=== PATIENT | female | born 1985 | race Caucasian/White ===

== ENCOUNTER 2016-12-05 02:01 | Emergency (ER) | payer SELFPAY ==
--- NOTE | ~2016-12-05 | ENPV ---
Vascular Lower Extremities DVT Study Procedure Demographics Patient Name DEVAN MCKEON Date of Study 12/05/2016 Patient Number [id number] Gender Female Date of 1985 Age 31 Visit Number [id number] Height Accession Number [id number] Weight Room Number BSA BMI Referring Holly Bryant MD Interpreting Juan Alvarez MD Physician Physician Physician Ordering Physician Holly Bryant Tool Drawing Checker Paper Grader Vivien Chávez T Conclusions Summary Normal venous duplex examination of the legs bilaterally with normal venous Doppler signals noted throughout. No evidence of thrombophlebitis is noted bilaterally in the deep and superficial veins of the legs. Small calf thrombi cannot be excluded. Procedure Type of Study: Veins:Lower Extremities DVT Study, Lower Extremity Right. Indications for Study:Swelling. Appropriate Use Criteria:9 Patient Status:STAT. Study Location:ER. Technical Quality:Limited visualization due to body habitus. Velocities are measured in cm/s ; Diameters are measured in cm Right Lower Extremities DVT Study Measurements Right 2D and Doppler Measurements + + + + +------+------+ + !Location !Visualized!Compressibility!Thrombosis!Signal!Reflux!Reflux ! ! ! ! ! ! ! !(sec) ! + + + + +------+------+ + !GSV Thigh !Yes !Yes !None !Phasic!No ! ! + + + + +------+------+ + !Common !Yes !Yes !None !Phasic!No ! ! !Femoral ! ! ! ! ! ! ! + + + + +------+------+ + !Prox !Yes !Yes !None !Phasic!No ! ! !Femoral ! ! ! ! ! ! ! + + + + +------+------+ + !Mid Femoral!Yes !Yes !None !Phasic!No ! ! + + + + +------+------+ + !Dist !Yes !Yes !None !Phasic!No ! ! !Femoral ! ! ! ! ! ! ! + + + + +------+------+ + !Popliteal !Yes !Yes !None !Phasic!No ! ! + + + + +------+------+ + !Gastroc !Yes !Yes !None !Phasic!No ! ! + + + + +------+------+ + !PTV !Yes !Yes !None !Phasic!No ! ! + + + + +------+------+ + !Peroneal !Yes !Yes !None !Phasic!No ! ! + + + + +------+------+ + Left Lower Extremities DVT Study Measurements Left 2D and Doppler Measurements + + + + +------+------+ + !Location !Visualized!Compressibility!Thrombosis!Signal!Reflux!Reflux ! ! ! ! ! ! ! !(sec) ! + + + + +------+------+ + !Common !Yes !Yes !None ! ! ! ! !Femoral ! ! ! ! ! ! ! + + + + +------+------+ + Signature dtt: GIDEON HANSON: 12/05/16 0258 Physician Self Edit
--- NOTE | ~2016-12-05 | ER ---
PATIENT'S NAME: DEVAN MCKEON [facility] AGE: 31 Y [address] ROOM: [place] [address] LOCATION: [facility] ADMIT DATE: 12/05/2016 ER/Outpatient Report DISCHARGE DATE: FAMILY PHYSICIAN: PHYSICIAN, NO ATTENDING PHYSICIAN: Luke Barrera Admission date and time are documented on the medical record. I saw the patient at 0210 hours. CHIEF COMPLAINT: Right lower leg foot and ankle pain. HISTORY OF PRESENT ILLNESS: The patient is a 31-year-old female who has had a 3-week history of right lower leg ankle and foot pain. No known injury. She did not stumble, fall, twisted, stepped in a hole, or any other incident that she recalls that started this pain. No history of gout or degenerative arthritis. No other joint pain, muscle pain, or any other injury. HOME MEDICATIONS: None. ALLERGIES: NONE. SOCIAL HISTORY: Nonsmoker, nondrinker. SIGNIFICANT PAST MEDICAL HISTORY: Depression, remote tobacco abuse, elevated liver enzymes, and obesity. OPERATIONS: Cholecystectomy, tonsillectomy, adenoidectomy, left knee arthroscopy, and right ankle surgery. REVIEW OF SYSTEMS: All systems reviewed by me are negative with the exception of those discussed in the history of present illness. PHYSICAL EXAMINATION: VITAL SIGNS: Temperature 97.7, pulse 90, respirations 16, blood pressure 160/81, and O2 sat on room air is 99%. EXTREMITIES: On examination of the right leg, there is some tenderness in the calf, there is some mild swelling about 2-cm increased diameter right versus left. Pulse intact. No open wounds. There is no redness, some swelling of PATIENT'S NAME: DEVAN MCKEON [facility] AGE: 31 Y [address] ROOM: [place] [address] LOCATION: [facility] ADMIT DATE: 12/05/2016 ER/Outpatient Report DISCHARGE DATE: FAMILY PHYSICIAN: PHYSICIAN, NO ATTENDING PHYSICIAN: Luke Barrera the ankle, tenderness to palpation, but no deformity. NEUROVASCULAR: Appears to be intact. LABORATORY DATA: X-ray of the right ankle and right foot showed no fracture. We will review all plain films with the radiologist. Laboratory: White count was 11,900, 65 segs, 27 lymphs, 5 monos, 2 eos, hemoglobin is 12.7 with hematocrit 40.0, and platelet count is 230,000. Sed rate is elevated 35, PTT was 28, pro-time is 10.7 with an INR 1.0. CMS was normal except for slightly low potassium 3.6, elevated glucose 297, low calcium of 8.3, CRP was 3.68. Uric acid was normal at 4.0. Venous Doppler study of the right leg showed no evidence of deep vein thrombosis or superficial thrombosis. See dictated Radiology report. IMPRESSION: Right lower leg ankle and foot pain, etiology uncertain. This may be inflammatory change. There is no evidence of deep vein thrombosis on Doppler study. There was no evidence of infection on laboratory or physical exam evaluation. She did have some swelling, but again no redness, no inflammatory, it was not hot to the touch, neurovascular intact. PLAN: The patient was given Toradol 60 mg IM in the emergency room and Solu-Medrol 125 mg IM in the emergency room. Discharged home. Observation. Activity as tolerated. Put her in a right Cam walking boot. Ice, elevation intermittently as needed. Medrol Dosepak take as directed. Toradol 10 mg 1 every 6 hours x12 doses. Crutches use as needed. Follow up with personal physician in 7 to 10 days or sooner if needed. Discussion ensued with the patient concerning my findings and recommendations, she understands. MD ARTHUR MEREDITH/modl /[id number] d: 12/05/16 0345 t: 12/05/16 1813, OUTPATIENT REPORT
[2016-12-05 02:29] LABS: BASOPHIL # 0.1 K/uL (0.0-0.2); BASOPHIL % 0.4 %; EOSINOPHIL # 0.3 K/uL (0.0-0.5); EOSINOPHIL % 2.4 %; HEMOGLOBIN 12.7 g/dL (11.0-15.0); IMMATURE GRANULOCYTE % 0.3 %; LYMPHOCYTE # 3.2 K/uL (0.8-4.0); MCH 24.6 pg (27.0-34.0); MCHC 31.8 gm/dL (32.0-36.5); MCV 77.4 fl (83.0-98.0); MONOCYTE # 0.5 K/uL (0.0-1.0); MONOCYTE % 4.5 %; MPV 9.8 fl (9.4-12.4); NEUTROPHIL # (ANC) 7.8 K/uL (1.8-7.8); NEUTROPHIL % 65.4 %; NRBC % 0 /100WBC (0-0.00); PLATELET COUNT 230 K/uL (150-450); RBC 5.17 M/uL (3.50-5.50); RDW-CV 13.2 % (11.9-14.6); WBC 11.9 K/uL (4.0-11.0)
[2016-12-05 02:47] LABS: ALK PHOS 105 IU/L (33-138); ALT 32 IU/L (12-78); ANION GAP 14.6 (10.0-19.0); AST 22 IU/L (10-40); BLOOD UREA NITROGEN 9 mg/dL (6-24); CALCIUM 8.3 mg/dL (8.5-10.5); CHLORIDE 104 mMol/L (96-110); CO2 26 mMol/L (22-32); CREATININE 0.7 mg/dL (0.5-1.1); ESTIMATED GFR (MDRD EQUATION) > 60; POTASSIUM 3.6 mMol/L (3.7-5.1); SODIUM 141 mMol/L (135-145); TOTAL BILIRUBIN 0.4 mg/dL (0.0-1.5); TOTAL PROTEIN 6.9 g/dL (6.0-8.4)
[2016-12-05 02:48] LABS: PROTIME 10.7 SECONDS (9.6-11.1); PTT 28 SECONDS (25-32)
== END 2016-12-05 03:27 | disposition disaster alternative care site (69) ==
LOC: GMED 02:01
PROVIDERS: Emergency Medicine
DX: M25.571 Pain in right ankle and joints of right foot (principal); Z90.49 Acquired absence of other specified parts of digestive tract; Z90.89 Acquired absence of other organs; Z98.890 Other specified postprocedural states
CPT/HCPCS: J1885; J2930

== ENCOUNTER 2016-12-30 21:41 | Emergency (ER) | payer SELFPAY ==
--- NOTE | ~2016-12-30 | ER ---
PATIENT'S NAME: DEVAN MCKEON [facility] AGE: 31 Y [address] ROOM: [place] [address] LOCATION: [facility] ADMIT DATE: 12/30/2016 ER/Outpatient Report DISCHARGE DATE: 12/30/2016 FAMILY PHYSICIAN: PHYSICIAN, NO ATTENDING PHYSICIAN: Emmanuel Escamilla TIME OF ARRIVAL: 2145 hours. TIME OF EXAM: 2145 hours. CHIEF COMPLAINT: Cough, bloody nose. HISTORY OF PRESENT ILLNESS: The patient states yesterday she developed nasal congestion and cough. She has had fever, chills type symptoms off and on for the past 24 hours. Concern that she has repeated bloody noses, they are self-limiting, and she is able to get them to stop. She is just concerned because they are continuing. ALLERGIES: SHE HAS NO KNOWN ALLERGIES. MEDICATIONS: No current medications. PAST MEDICAL HISTORY: Positive for hepatitis B. PAST SURGERIES: Tonsillectomy, left knee surgery, and right ankle surgery. SOCIAL HISTORY: She denies use of tobacco, drugs, or alcohol. REVIEW OF SYSTEMS: All negative other than those mentioned in the HPI. PHYSICAL EXAMINATION: VITAL SIGNS: She weighed 169.8 kg. Blood pressure is 189/88, pulse of 100, respirations 20, temp of 98.8, and O2 sat was 97% on room air. GENERAL: She is awake, alert, and oriented x4. SKIN: [place], warm, and dry. RESPIRATIONS: Even and nonlabored. Nasal is boggy. No active bleeding is PATIENT'S NAME: DEVAN MCKEON [facility] AGE: 31 Y [address] ROOM: [place] [address] LOCATION: [facility] ADMIT DATE: 12/30/2016 ER/Outpatient Report DISCHARGE DATE: 12/30/2016 FAMILY PHYSICIAN: PHYSICIAN, NO ATTENDING PHYSICIAN: Emmanuel Escamilla noted at this time. No dried blood in the nares are noted. Oropharynx is clear. No postnasal drip is noted. NECK: Supple. No lymphadenopathy. LUNGS: Lung sounds are clear throughout. HEART: Regular rate and rhythm. LABORATORY DATA: Chest x-ray was completed. No acute process noted. Influenza A and B were checked and they are negative. IMPRESSION: Viral respiratory illness, epistaxis. PLAN: Home, rest, fluids, and Tylenol or ibuprofen as needed. Did discuss with the patient ways to help moisturize the nose area with either saline nose spray or cool mist humidifier. If symptoms persist or worsen, I encouraged her to follow up with her primary provider within the next 2-3 days. She verbalized understanding. BRIONNA ARELLANO APRN FOR MD RICA LANDRY/henrry /[id number] d: 12/31/167 t: 01/11/17 0826, OUTPATIENT REPORT
== END 2016-12-30 22:30 | disposition disaster alternative care site (69) ==
LOC: GMED 21:41
DX: J98.8 Other specified respiratory disorders (principal); R04.0 Epistaxis; Z90.89 Acquired absence of other organs; Z98.890 Other specified postprocedural states

== ENCOUNTER 2017-01-30 16:25 | Emergency (ER) | payer SELFPAY ==
--- NOTE | ~2017-01-30 | ER ---
PATIENT'S NAME: ENE MCKEON [facility] AGE: 31 Y [address] ROOM: [place] [address] LOCATION: [facility] ADMIT DATE: 01/30/2017 ER/Outpatient Report DISCHARGE DATE: 01/30/2017 FAMILY PHYSICIAN: PHYSICIAN, NO ATTENDING PHYSICIAN: Luke Barrera Admit Time: 1625 hours. Time of Evaluation: 1635 hours. CHIEF COMPLAINT: Migraine headache, lower back pain. HISTORY OF PRESENT ILLNESS: Ene is a 31-year-old, female who presents with her to the emergency room with a 2-day history of increasing headache, also some lower back pain that has been consistent off and on. The patient did take some Tylenol yesterday, ibuprofen a couple of days ago, but she currently does not have any financial means to afford more. She reports a little bit of sensitivity with light, but no nausea or vomiting. She does have a history of migraines, she tells me "this feels like a regular migraine, as it is always in the right frontal part of my head." She reports her last migraine headache was 2 months ago. She currently rates her pain at 9/10. The patient's blood pressure is a little bit elevated, but denies any history of hypertension. The patient is also complaining of some lower back pain, reports it is off and on, but has been more so in the last couple of days. She denies any lower leg pain, weakness, radiculopathy, loss of bowel or bladder function, extreme weakness, and/or fever. The patient has no personal history of cancer. PAST MEDICAL HISTORY: 1. Anxiety. 2. Depression. 3. Hepatitis C, has had treatment and eradicated. 4. Migraine headache. ALLERGIES: NO KNOWN DIAGNOSED ALLERGIES. MEDICATIONS: No medications on a regular basis. SOCIAL HISTORY: The patient denies any smoking, has had a history in the past where she would smoke a few. She denies any regular alcohol use or drug use. FAMILY HISTORY: PATIENT'S NAME: EEN MCKEON [facility] AGE: 31 Y [address] ROOM: [place] [address] LOCATION: [facility] ADMIT DATE: 01/30/2017 ER/Outpatient Report DISCHARGE DATE: 01/30/2017 FAMILY PHYSICIAN: PHYSICIAN, NO ATTENDING PHYSICIAN: Luke Barrera Not obtained. REVIEW OF SYSTEMS: All systems are reviewed by myself and negative with the exception of those noted in the HPI. She has no history of heart problems, no urinary symptoms today. PHYSICAL EXAMINATION: VITAL SIGNS: 5 feet 11 inches. Weight 172 kg. Temperature 99.1, pulse 95, respirations 16, blood pressure 160/73, and she is 97% on room air. Current pain level 9/10. GENERAL: Ene is alert and oriented x4, cooperative, in no acute distress. The lights are on, this does not seem to bother her much. SKIN: Overall is within normal limits. HEENT: Head: Normocephalic, atraumatic. Eyes: Sclerae are nonicteric. Pupils equal, round, and reactive to light. Ears: TMs intact. There are no effusions or redness noted. Nose: Patent. No congestion noted. Mouth and Throat: Oropharynx clear. Buccal mucosa is moist. Tongue is midline. Uvula is midline. NECK: Supple. No lymphadenopathy. No nuchal rigidity noted. She has full range of motion noted. CHEST AND LUNGS: Lung sounds are clear throughout. HEART: Regular rate and rhythm. No murmur appreciated. MUSCULOSKELETAL: She is tender to her lower back, to bilateral paraspinous lumbar area. There is no vertebral tenderness. The patient has deep tendon reflexes 2+ patellar, no radiculopathy. Strength 5/5 to lower extremities. NEUROLOGIC: Cranial nerves are grossly intact. LABORATORY DATA: Please note, there were no labs or x-rays performed with this visit. ASSESSMENT: 1. Migraine headache with no neurologic deficits. 2. Low back strain with no neurologic deficits. PLAN: The patient did receive Toradol 60 mg IM x1, did tolerate this well. She has had this in the past and reports this has been helpful. The patient will not have any means to pay for the ibuprofen, I did call the pharmacy to make sure there was no free samples that could be given. I did write her a script for ibuprofen 600 mg 1 p.o. t.i.d. p.r.n. headache/back pain, #30 with no refills. She does get paid next week and she will go ahead and do this. She also has an appointment at the [facility] next week on February 08. She can use heat with warm moist packs at home and also she believes she has some Icy Hot and/or BioFreeze. No lifting, pushing, pulling greater than 10 pounds. No PATIENT'S NAME: ENE MCKEON [facility] AGE: 31 Y [address] ROOM: [place] [address] LOCATION: [facility] ADMIT DATE: 01/30/2017 ER/Outpatient Report DISCHARGE DATE: 01/30/2017 FAMILY PHYSICIAN: PHYSICIAN, NO ATTENDING PHYSICIAN: Luke Barrera excessive standing in one spot, and she is to return if she would have any red flag symptoms and which we reviewed extensively. The patient's is here, is here to take her home. They will return to the emergency room if there would be any change in her symptomatology. The patient is agreeable. CONDITION: Stable. JOHN QUEZADA, GUITAR MAKER HAND FOR MD VIVIANA MEREDITH/henrry /[id number] d: 01/30/172304 t: 02/10/17 1322, OUTPATIENT REPORT
== END 2017-01-30 18:00 | disposition disaster alternative care site (69) ==
LOC: GMED 16:25
DX: S39.012A Strain of muscle, fascia and tendon of lower back, initial encounter (principal); G43.909 Migraine, unspecified, not intractable, without status migrainosus; F41.9 Anxiety disorder, unspecified; F32.9 Major depressive disorder, single episode, unspecified; X58.XXXA Exposure to other specified factors, initial encounter
CPT/HCPCS: J1885

== ENCOUNTER 2017-02-12 15:46 | Emergency (ER) | payer SELFPAY ==
--- NOTE | ~2017-02-12 | ER ---
PATIENT'S NAME: DEVAN MCKEON [facility] AGE: 31 Y [address] ROOM: [place] [address] LOCATION: [facility] ADMIT DATE: 02/12/2017 ER/Outpatient Report DISCHARGE DATE: 02/12/2017 FAMILY PHYSICIAN: PHYSICIAN, NO ATTENDING PHYSICIAN: Luke Barrera Admission date and time are documented on the medical record. I saw the patient at 1605 hours. CHIEF COMPLAINT: Left nasal bleed. HISTORY OF PRESENT ILLNESS: This patient is a 31-year-old female who has had left nasal bleed off and on since 0800 this morning. No trauma. She has not had any respiratory or nasal congestion. Did not blow her nose or pick her nose. Presented to the emergency room for evaluation. No other complaints. HOME MEDICATIONS: None. ALLERGIES: NONE. SOCIAL HISTORY: Nonsmoker, nondrinker. SIGNIFICANT PAST MEDICAL HISTORY: Negative. OPERATIONS: Cholecystectomy, tonsillectomy, left knee surgery, and right ankle surgery. REVIEW OF SYSTEMS: All systems reviewed by me are negative with the exception of those discussed in the history of present illness. PHYSICAL EXAMINATION: VITAL SIGNS: Temperature 98.9, tympanic, pulse 105, respirations 20, blood pressure 161/103, came down to 170/93, and O2 sat on room air is 97%. HEENT: On examination, the patient has no active bleeding anteriorly or posteriorly from the left naris. There is some areas after suctioning that looks like it was raw, blood vessel has clotted off; so, I went ahead and cauterized these areas with silver nitrate. The patient tolerated the procedure well. PATIENT'S NAME: DEVAN MCKEON [facility] AGE: 31 Y [address] ROOM: [place] [address] LOCATION: [facility] ADMIT DATE: 02/12/2017 ER/Outpatient Report DISCHARGE DATE: 02/12/2017 FAMILY PHYSICIAN: PHYSICIAN, NO ATTENDING PHYSICIAN: Luke Barrera IMPRESSION: Left nasal bleed. PLAN: The patient dismissed home. Observation. Activity as tolerated. Avoid blowing or picking nose. May use Vaseline in the nares if needed to keep the nasal mucosa moist. May start this after 24 hours. Follow up with personal physician as needed. MD ARTHUR MEREDITH/henrry /[id number] d: 02/12/17 2337 t: 02/13/17 0651, OUTPATIENT REPORT
== END 2017-02-12 16:42 | disposition disaster alternative care site (69) ==
LOC: GMED 15:46
PROC: 0W3Q7ZZ Control Bleeding in Respiratory Tract, Via Natural or Artificial Opening (ICD-10-PCS; principal; 2017-02-12)
DX: R04.0 Epistaxis (principal); Z90.49 Acquired absence of other specified parts of digestive tract; Z98.890 Other specified postprocedural states

== ENCOUNTER 2017-02-15 10:34 | Emergency (ER) | payer SELFPAY ==
--- NOTE | ~2017-02-15 | ER ---
PATIENT'S NAME: DEVAN MCKEON [facility] AGE: 31 Y [address] ROOM: [place] [address] LOCATION: [facility] ADMIT DATE: 02/15/2017 ER/Outpatient Report DISCHARGE DATE: 02/15/2017 FAMILY PHYSICIAN: PHYSICIAN, NO ATTENDING PHYSICIAN: Emmanuel Benavidez HISTORY OF PRESENT ILLNESS: The patient states that since she was here on Monday for her nosebleed, she has had some intermittent rebleeding and today, she felt like it was very prolific. She has been using her finger to try to apply some Vaseline to the nose. She has not tried any pressure to stop the bleeding today. It started today after a sneeze. No other acute findings or issues and she denies anticoagulation. PAST MEDICAL HISTORY: Documented on the record and reviewed by me. SOCIAL HISTORY: Documented on the record and reviewed by me. MEDICATIONS: Documented on the record and reviewed by me. ALLERGIES: DOCUMENTED ON THE RECORD AND REVIEWED BY ME. ROS: All systems are reviewed and negative except as noted in the HPI. PHYSICAL EXAMINATION: VITAL SIGNS: Blood pressure is 143/102, pulse is 95, respiratory rate is 14, temperature 98.1, SpO2 is 97% on room air, pain is 0/10. GENERAL: Age appropriate female, sitting upright on a chair, in no obvious pain or distress. NEUROLOGIC: Awake, alert. GCS is 15. No obvious abnormalities. HEENT: Normocephalic, atraumatic. Eyes are PERRL. Oropharynx is clear. NECK: Supple. Trachea is midline. Nasopharynx is notable for some excoriation on the left Kiesselbach's plexus. No active bleeding appreciated. Scant dried blood at the nares. CHEST: Even, unlabored respirations. HEART: Regular rate and rhythm. ABDOMEN: Obese. EXTREMITIES: Warm and well perfused. SKIN: Clean, dry, and intact. PATIENT'S NAME: DEVAN MCKEON [facility] AGE: 31 Y [address] ROOM: [place] [address] LOCATION: [facility] ADMIT DATE: 02/15/2017 ER/Outpatient Report DISCHARGE DATE: 02/15/2017 FAMILY PHYSICIAN: PHYSICIAN, NO ATTENDING PHYSICIAN: Emmanuel Benavidez LABORATORY DATA AND X-RAYS: None. IMPRESSION: Epistaxis, resolved. EMERGENCY DEPARTMENT COURSE: The patient was seen and evaluated. I reiterated at length the utility for pressure in the setting of active bleeding. I also recommended using a cotton- tipped applicator to ensure adequate application of petroleum jelly to the nasal septum in addition to humidified air, as well as use of oxymetazoline and pressure if she has continued bleeding after 10-15 minutes of direct pressure. The patient was thankful for the updates. She had no further bleeding, was deemed stable for discharge, and subsequently was discharged to home. Follow up as needed. EMMANUEL MD AMAN BENAVIDEZ/henrry /[id number] d: 02/16/17 0013 t: 02/28/17 1732, OUTPATIENT REPORT
== END 2017-02-15 11:00 | disposition disaster alternative care site (69) ==
LOC: GMED 10:34
DX: R04.0 Epistaxis (principal)

== ENCOUNTER 2017-03-23 20:42 | Emergency (ER) | payer SELFPAY ==
--- NOTE | ~2017-03-23 | ER ---
PATIENT'S NAME: ENE MCKEON [facility] AGE: 31 Y [address] ROOM: [place] [address] LOCATION: [facility] ADMIT DATE: 03/23/2017 ER/Outpatient Report DISCHARGE DATE: 03/23/2017 FAMILY PHYSICIAN: Physician, Unknown ATTENDING PHYSICIAN: Zoe Herrera Time of Arrival: 2042 hours. Time of Evaluation: 2112 hours. CHIEF COMPLAINT: Low back pain. HISTORY OF PRESENT ILLNESS: Ene is a 31-year-old female, who presents to the emergency room with an onset of lower back pain over the last 3 weeks. I had seen Ene myself here in the emergency room about 3 to 4 weeks ago, I did review this note. [facility], they suggest to use over-the- counter ibuprofen and Tylenol for her back pain. She denies any previous injuries, no previous MVAs or trauma. She currently is not working as she is on disability. She denies any new injuries, any new activity. She reports the evenings and the nights are hard to get comfortable, she does not have any insurance or any financial means to afford any further medications at this time over the counter. I had previously wrote a script for ibuprofen, but she did not fill this, reports she was able to use a couple from a friend. The patient is complaining now some radiculopathy, which is new from her prior visit. She has no prior history of an x-ray of her back. The patient denies any abdominal pain, fevers, or personal history of cancer. She denies any loss of bowel or bladder function. PAST MEDICAL HISTORY: 1. Anxiety with depression. 2. History of migraine headaches. 3. Hepatitis C, treated and eradicated. 4. Postoperative tonsillectomy. 5. Postoperative cholecystectomy. 6. Postoperative left knee surgery. 7. Postoperative right ankle surgery. CURRENT MEDICATIONS: The patient is not taking any medications on a regular basis. ALLERGIES: NO KNOWN DIAGNOSED ALLERGIES. PATIENT'S NAME: ENE MCKEON [facility] AGE: 31 Y [address] ROOM: [place] [address] LOCATION: [facility] ADMIT DATE: 03/23/2017 ER/Outpatient Report DISCHARGE DATE: 03/23/2017 FAMILY PHYSICIAN: Physician, Unknown ATTENDING PHYSICIAN: Zoe Herrera SOCIAL HISTORY: The patient is , her is with her tonight. She denies any smoking, drugs, or alcohol use. REVIEW OF SYSTEMS: All systems reviewed by myself and negative with the exception of those noted in the HPI. PHYSICAL EXAMINATION: VITAL SIGNS: Current height 5 feet and 11 inches, current weight 172.6 kg, temperature 99.0, pulse 110, respirations 16, blood pressure is elevated at 177/95, and she is 96% on room air. GENERAL: The patient is alert, oriented x4, cooperative, in no acute distress. She is lying on her left side as she says it hurts too much to lay on her right. SKIN: Overall is within normal limits. There are no rashes or bruising to her lower back. LUNGS: Lung sounds are clear throughout. HEART: Regular rhythm, slightly tachycardic. She was little anxious, this did come down after being here for a little while. BACK: She does have some vertebral tenderness to her lumbar area, mostly lower. Some tenderness to the SI joint mostly on the right side. Mild discomfort all the way across her lower back. She does have some sciatic notch tenderness. EXTREMITIES: She reports of radiculopathy that travels to the posterior part of her leg, down to her toes. Reflexes intact, strong. Plantar and dorsiflexion are strong. There is no disruption in circulation noted. Gait is slightly ataxic, but otherwise normal. No other focal deficits are noted. LABORATORY DATA AND X-RAYS: Please note, an x-ray of the lumbar spine was obtained. There may be just a little bit of narrowing between L1 and L2, but there is no other abnormalities present, vertebral height is adequate, space is adequate. No acute findings noted. Await official over-read. ASSESSMENT: 1. Lower back pain. 2. Right-sided sciatica. 3. Radiculopathy. PLAN: The patient did receive Toradol 60 mg IM x1 and cyclobenzaprine 10 mg p.o. x1. The patient does not have the financial means to fill any ibuprofen and/or cyclobenzaprine. I did print her out a handout on some exercises for sciatica, also a back care handout. She does have some leftover ibuprofen at PATIENT'S NAME: ENE MCKEON [facility] AGE: 31 Y [address] ROOM: [place] [address] LOCATION: [facility] ADMIT DATE: 03/23/2017 ER/Outpatient Report DISCHARGE DATE: 03/23/2017 FAMILY PHYSICIAN: Physician, Unknown ATTENDING PHYSICIAN: Zoe Herrera home from her friend that she may use and also Tylenol if she is able to borrow from a friend. We talked about heat and ice, and also topical analgesics. [facility], her does have an appointment. The patient verbalizes understanding, condition is stable. JOHN QUEZADA APRN FOR MD VIVIANA LINO/henrry /[id number] d: 03/24/17 0336 t: 04/02/17 191, OUTPATIENT REPORT
== END 2017-03-23 22:05 | disposition disaster alternative care site (69) ==
LOC: GMED 20:42
DX: M54.16 Radiculopathy, lumbar region (principal); M54.41 Lumbago with sciatica, right side; F41.8 Other specified anxiety disorders; G43.909 Migraine, unspecified, not intractable, without status migrainosus; Z86.19 Personal history of other infectious and parasitic diseases; Z90.89 Acquired absence of other organs; Z90.49 Acquired absence of other specified parts of digestive tract; Z98.890 Other specified postprocedural states
CPT/HCPCS: J1885

== ENCOUNTER 2017-03-29 10:00 | Emergency (ER) | payer SELFPAY ==
--- NOTE | ~2017-03-29 | ER ---
PATIENT'S NAME: DEVAN MCKEON [facility] AGE: 31 Y [address] ROOM: [place] [address] LOCATION: [facility] ADMIT DATE: 03/29/2017 ER/Outpatient Report DISCHARGE DATE: 03/29/2017 FAMILY PHYSICIAN: Physician, Unknown ATTENDING PHYSICIAN: Ana Luisa Dubois TIME OF ARRIVAL: 1000 hours. TIME SEEN: 1047 hours. IDENTIFICATION: A 31-year-old female. CHIEF COMPLAINT: Elevated blood pressure and pulse. HISTORY OF PRESENT ILLNESS: The patient is a 31-year-old female, who normally receives care at the [facility]. She went to the [facility] yesterday and today because she wishes to donate. She was found to have a slightly elevated blood pressure and pulse and she has been feeling tired, so she came here although she said her labs there were normal. Her only other symptom is she has increased thirst. ALLERGIES: NO KNOWN DRUG ALLERGIES. CURRENT MEDICATIONS: No current medications. MEDICAL PROBLEMS: Denies. PRIOR SURGERIES: Cholecystectomy, left knee surgery, right ankle surgery, and tonsillectomy. SOCIAL HISTORY: The patient is disabled due to a reading disability. Lives here in [place]. Does not work. Tobacco use, denies. Alcohol use, denies. Drug use, denies. REVIEW OF SYSTEMS: All systems reviewed and negative other than what is noted in the HPI. Last menstrual period ended on March 24 and was normal, and then just increase in PATIENT'S NAME: DEVAN MCKEON [facility] AGE: 31 Y [address] ROOM: [place] [address] LOCATION: [facility] ADMIT DATE: 03/29/2017 ER/Outpatient Report DISCHARGE DATE: 03/29/2017 FAMILY PHYSICIAN: Physician, Unknown ATTENDING PHYSICIAN: Ana Luisa Dubois thirst. She denies headache. No neck pain. No vision changes. No sore throat. No cough or shortness of breath. No abdominal pain, nausea, or vomiting. No diarrhea. No blood in her stools. No dark, tarry, or black stools. No pain or burning with urination. No increased frequency of urination. No lower extremity edema. She says she has been eating and drinking very well. PHYSICAL EXAMINATION: VITAL SIGNS: Weight 170 kg, blood pressure 163/98, pulse 92-98, respirations 20, temperature 97.4, and saturations 97% on room air. Recheck blood pressure 136/90, pulse 92, respirations 20, and saturations 97%. GENERAL: A 31-year-old female, in no acute distress. HEENT: Head: Normocephalic, atraumatic. Ears: TMs translucent both ears. Eyes: Pupils equal and reactive to light and accommodation. Extraocular movements intact. Nose: Mucosa pink. No lesions or drainage. Mouth: No lesions. Pharynx benign. NECK: Supple. No lymphadenopathy. No thyromegaly. LUNGS: Clear to auscultation. Breath sounds are equal. HEART: Regular rate and rhythm. No murmur, rub, or gallop. ABDOMEN: Bowel sounds present. Soft, protuberant, nondistended, and nontender. SKIN: [place], warm, and dry. No lesions or rashes noted. NEUROLOGIC: The patient is alert and oriented x4. Cranial nerves 2 through 12 grossly intact. Motor strength 5/5 throughout. Sensation is intact to light touch. No lower extremity edema. LABORATORY DATA: UA; specific gravity 1.020, pH 6, glucose 250 mg/dL otherwise negative. Urine hCG is negative. Sodium 137, potassium 3.8, chloride 105, CO2 of 24, BUN 10, creatinine 0.8, and blood sugar 271. Liver enzymes normal. Alkaline phosphatase 132, AST 43, ALT 44. TSH 2.050. Hemoglobin 13.9, hematocrit 42.7, platelets 290, and white count 13.1 with a normal differential. Hemoglobin A1c elevated at 9.6. IMPRESSION: 1. New-onset diabetes. 2. Elevated blood pressure. 3. Fatigue. PLAN: I strongly [facility]. Diabetic diet information was provided. I did discuss starting metformin with her. She would like to wait until followup at the [facility]. The patient understands and agrees, and all questions have been answered. PATIENT'S NAME: DEVAN MCKEON [facility] AGE: 31 Y [address] ROOM: [place], [place] [address] LOCATION: ED ADMIT DATE: 03/29/2017 ER/Outpatient Report DISCHARGE DATE: 03/29/2017 FAMILY PHYSICIAN: Physician, Unknown ATTENDING PHYSICIAN: Ana Liusa Dubois MD GERONIMO LANDERS/henrry /[id number] d: 03/29/178 t: 04/01/17 0819, OUTPATIENT REPORT
[2017-03-29 11:17] LABS: BASOPHIL # 0.1 K/uL (0.0-0.2); BASOPHIL % 0.5 %; EOSINOPHIL # 0.2 K/uL (0.0-0.5); EOSINOPHIL % 1.6 %; HEMATOCRIT 42.7 % (33.0-46.0); HEMOGLOBIN 13.9 g/dL (11.0-15.0); IMMATURE GRANULOCYTE # 0.1 K/uL (0.0-0.3); IMMATURE GRANULOCYTE % 1.1 %; LYMPHOCYTE # 2.9 K/uL (0.8-4.0); LYMPHOCYTE % 21.7 %; MCHC 32.6 gm/dL (32.0-36.5); MCV 76.9 fl (83.0-98.0); MONOCYTE # 0.7 K/uL (0.0-1.0); MONOCYTE % 5.1 %; MPV 9.9 fl (9.4-12.4); NEUTROPHIL # (ANC) 9.2 K/uL (1.8-7.8); NRBC % 0 /100WBC (0-0.00); RBC 5.55 M/uL (3.50-5.50); RDW-CV 13.1 % (11.9-14.6); WBC 13.1 K/uL (4.0-11.0)
[2017-03-29 11:20] LABS: PLATELET COUNT 290 K/uL (150-450)
[2017-03-29 11:33] LABS: BILIRUBIN URINE NEGATIVE (NEGATIVE); BLOOD URINE NEGATIVE /UL (NEGATIVE); COLOR URINE YELLOW (YELLOW); GLUCOSE URINE 250 mg/dL (NEGATIVE); KETONE URINE NEGATIVE (NEGATIVE); LEUKOCYTES URINE NEGATIVE /UL (NEGATIVE); NITRITE URINE NEGATIVE (NEGATIVE); PROTEIN URINE NEGATIVE (NEGATIVE); TURBIDITY URINE CLEAR (CLEAR); UROBILINOGEN URINE NORMAL (NORMAL)
[2017-03-29 11:36] LABS: ALBUMIN 3.2 gm/dL (3.5-5.0); ALK PHOS 132 IU/L (33-138); ALT 44 IU/L (12-78); ANION GAP 11.8 (10.0-19.0); AST 43 IU/L (10-40); BLOOD UREA NITROGEN 10 mg/dL (6-24); CALCIUM 8.4 mg/dL (8.5-10.5); CHLORIDE 105 mMol/L (96-110); CO2 24 mMol/L (22-32); CREATININE 0.8 mg/dL (0.5-1.1); ESTIMATED GFR (MDRD EQUATION) > 60; POTASSIUM 3.8 mMol/L (3.7-5.1); SODIUM 137 mMol/L (135-145); TOTAL PROTEIN 7.8 g/dL (6.0-8.4)
[2017-03-29 11:42] LABS: TOTAL BILIRUBIN 0.7 mg/dL (0.0-1.5)
== END 2017-03-29 12:55 | disposition disaster alternative care site (69) ==
LOC: GMED 10:00
PROVIDERS: Family Medicine
DX: R03.0 Elevated blood-pressure reading, without diagnosis of hypertension (principal); E11.9 Type 2 diabetes mellitus without complications; R53.83 Other fatigue; Z90.49 Acquired absence of other specified parts of digestive tract; Z90.89 Acquired absence of other organs

== ENCOUNTER 2017-05-22 19:03 | Emergency (ER) | payer SELFPAY ==
--- NOTE | ~2017-05-22 | ER ---
PATIENT'S NAME: DEVAN MCEKON [facility] AGE: 32 Y [address] ROOM: [place] [address] LOCATION: [facility] ADMIT DATE: 05/22/2017 ER/Outpatient Report DISCHARGE DATE: 05/22/2017 FAMILY PHYSICIAN: PHYSICIAN, NO ATTENDING PHYSICIAN: Phu Meyer Time of Arrival: 1903 hours. Time of Evaluation: 1920 hours. CHIEF COMPLAINT: This is a 32-year-old female. She was previously healthy. She is in with complaint of pain in her left foot in the heel. HISTORY OF PRESENT ILLNESS: She reports that she started a new job. She has been on her feet more than usual. She denies any injury, but she developed pain in her heel earlier today. PAST MEDICAL HISTORY: Significant for obesity. CURRENT MEDICATIONS: None. REVIEW OF SYSTEMS: Otherwise negative. SOCIAL HISTORY: She is a nonsmoker. PHYSICAL EXAMINATION: GENERAL: An alert overweight female, in no acute distress. VITAL SIGNS: Stable. SKIN: Warm and dry. Color was normal. EXTREMITIES: Examination of the affected extremity: The left foot had significant tenderness at the insertion of the Achilles tendon. There was no crepitance, no deformity. Distal neurovascular function was intact. IMAGING DATA: Radiographic examination of the foot was negative. ASSESSMENT: Achilles tendonitis. PLAN: PATIENT'S NAME: DEVAN MCKEON [facility] AGE: 32 Y [address] ROOM: [place] [address] LOCATION: [facility] ADMIT DATE: 05/22/2017 ER/Outpatient Report DISCHARGE DATE: 05/22/2017 FAMILY PHYSICIAN: PHYSICIAN, NO ATTENDING PHYSICIAN: Phu Meyer Motrin 800 mg 3 times a day. Med wrap. Wide supportive shoes. Follow up with a regular doctor as needed. MD SAE CHEUNG/josel /[id number] d: 05/23/17520 t: 05/25/17 0552, OUTPATIENT REPORT
== END 2017-05-22 20:11 | disposition disaster alternative care site (69) ==
LOC: GMED 19:03
DX: M76.62 Achilles tendinitis, left leg (principal); E66.9 Obesity, unspecified; Z79.1 Long term (current) use of non-steroidal anti-inflammatories (NSAID); Z98.890 Other specified postprocedural states